=== PATIENT | male | born 1995 | race Caucasian/White ===

== ENCOUNTER 2021-09-18 00:50 | Inpatient (IN) | payer OTHER ==
[2021-09-18] MEDS ORDERED: CEFAZOLIN 1 GM VIAL ONE (00:53)
[2021-09-18] MEDS ORDERED: Boostrix 0.5 ML (Tdap) VIAL ONE (00:53)
[2021-09-18 01:13] LABS: #Basophils 0.1 thou/uL (0.0-0.2); #Eosinphils 0.2 thou/uL (0.0-0.7); #Lymphocytes 5.4 thou/uL (1.20-3.40); #Monocytes 0.8 thou/uL (0.11-0.59); #Neutrophils 12.6 thou/uL (1.40-6.50); %Basophils 0.4 % (0.0-1.0); %Eosinophils 1.2 % (0.0-10.0); %Monocytes 4.3 % (0.0-10.0); %Neutrophils 66.1 % (42.0-75.0); Mean Corpuscular Hemoglobin 31.3 pg (27.0-31.0); Mean Platelet Volume 8.9 fL (7.4-10.4); Platelet Count 290 thou/uL (130-400); RBC Distribution Width 12.1 % (11.5-14.5); Red Blood Cell (RBC) Count 4.48 mill/uL (4.70-6.10); White Blood Cell (WBC) Count 19.1 thou/uL (4.8-10.8)
[2021-09-18] MEDS ORDERED: Lidocaine 1% PF 5 ML VIAL ONE (01:23)
[2021-09-18 01:24] LABS: ALT (SGPT) 184 U/L (8-55); AST (SGOT) 290 U/L (5-34); Albumin 3.9 g/dL (3.5-5.0); Alkaline Phosphatase 68 U/L (40-110); Anion Gap 18 mmol/L (10-20); BUN (Urea Nitrogen) 23 mg/dL (8.9-20.6); Bilirubin, Total 0.9 mg/dL (0.2-1.2); Calc. Creatinine Clearance 0 mL/min (70-130); Calcium 9.2 mg/dL (7.8-10.44); Carbon Dioxide 19 mmol/L (22-29); Chloride 107 mmol/L (98-107); Globulin 2.5 g/dL (2.4-3.5); Glucose 197 mg/dL (70-105); Lipase 171 U/L (8-78); Potassium 3.5 mmol/L (3.5-5.1); Protein, Total 6.4 g/dL (6.0-8.3); Sodium 140 mmol/L (136-145)
[2021-09-18 01:27] LABS: INR-International Normal Ratio 1.2; PTT 34.9 sec (22.9-36.1); Prothrombin Time 15.2 sec (12.0-14.7)
[2021-09-18 01:28] LABS: Acetaminophen Less than 6.0 mcg/mL (10.0-30.0); Alcohol Less than 10 mg/dL (Less than 10); Salicylate Less than 8.0 mg/dL (15.0-30.0)
[2021-09-18] MEDS ORDERED: Morphine 4 MG/ML VIAL SLOW IVP PRN ×2 (01:38)
[2021-09-18] MEDS ORDERED: Dextrose 50% Abboject 50 ML SYRINGE SLOW IVP PRN (01:38)
[2021-09-18] MEDS ORDERED: Dextrose 5% in Water 1,000 ML IV PRN (01:38)
[2021-09-18] MEDS ORDERED: Ondansetron PF 4 MG/2 ML Vial IVP PRN (01:38)
[2021-09-18] MEDS ORDERED: Bacitracin 1 PK ONE (01:42)
[2021-09-18] MEDS ORDERED: Sodium Chloride 0.9% 1,000 ML IV SCH ×2 (01:45→07:30)
[2021-09-18 02:01] LABS: Bacteria/HPF None Seen HPF (None Seen); Bilirubin Negative (Negative); Blood, Urine 3+ (Negative); Clarity Clear (Clear); Glucose, Urine (Dipstick) Normal (Negative); Ketone, Urine Negative (Negative); Leukocyte Negative Leu/uL (Negative); Nitrite Negative (Negative); Protein, Urine (Dipstick) 30 mg/dL (Neg-Trace); RBC/HPF Greater than 50 HPF (0-3); Specific Gravity, Urine 1.022 (1.002-1.036); Squamous Epithelial 0-3 HPF (0-3); Urobilinogen Normal mg/dL (Less than 2); WBC/HPF 0-3 HPF (0-3)
[2021-09-18 02:02] LABS: Amphetamine Not Detected (NotDetected); Barbiturates Screen Not Detected (NotDetected); Benzodiazepine Screen Not Detected (NotDetected); Cocaine Metabolite Screen Not Detected (NotDetected); Methadone Not Detected (NotDetected); Methamphetamine Not Detected (NotDetected); Opiate Screen Not Detected (NotDetected); Oxycodone Screen Not Detected (NotDetected); Phencyclidine (PCP) Not Detected (NotDetected); THC/Cannabinoid Screen Not Detected (NotDetected); Tricyclic Screen Not Detected (NotDetected)
[2021-09-18] MEDS ORDERED: Lorazepam 2 MG/ML VIAL ONE (02:06)
[2021-09-18 04:06] LABS: Hemoglobin 14.2 g/dL (14.0-18.0)
[2021-09-18 04:08] LABS: Phosphorus 4.8 mg/dL (2.3-4.7)
[2021-09-18 04:09] LABS: Anion Gap 17 mmol/L (10-20); BUN (Urea Nitrogen) 28 mg/dL (8.9-20.6); Calc. Creatinine Clearance 0 mL/min (70-130); Calcium 9.5 mg/dL (7.8-10.44); Carbon Dioxide 23 mmol/L (22-29); Chloride 105 mmol/L (98-107); Glucose 149 mg/dL (70-105); Magnesium 2.1 mg/dL (1.6-2.6); Potassium 3.6 mmol/L (3.5-5.1); Sodium 141 mmol/L (136-145)
[2021-09-18 04:10] LABS: Lactic Acid 3.9 mmol/L (0.5-2.2)
[2021-09-18 04:47] VITALS: BMI 31.4
[2021-09-18 05:40] LABS: SARS-CoV-2 NAA Rapid Test Not Detected (NotDetected)
[2021-09-18] MEDS ORDERED: Potassium Chloride 20 MEQ in Premix Bag 1 BAG IVPB SCH (07:30)
[2021-09-18] MEDS ORDERED: FLU VACC QS2021-22(6MOS UP)/PF 60 MCG/0.5 ML SYRINGE IM ONE (09:00)
[2021-09-18] MEDS: Famotidine/PF 20 mg/2ml Vial SLOW IVP SCH ×2 (09:41→20:32)
[2021-09-18] MEDS ORDERED: Cyclobenzaprine 10 MG TAB PO PRN (10:14)
[2021-09-18] MEDS ORDERED: traMADol HCl 50 MG TAB PO PRN ×2 (10:14)
[2021-09-18] MEDS ORDERED: Iopamidol-370 76% 500 ML 1 ML ONE (11:00)
[2021-09-18] MEDS: Acetaminophen 500 MG TAB PO SCH ×3 (11:24→23:21)
[2021-09-18] MEDS: Sodium Chloride 0.9% 1,000 ML IV SCH ×3 (12:03→20:30)
[2021-09-18] MEDS: Gabapentin 300 MG CAP PO SCH ×2 (16:00→20:32)
[2021-09-18] MEDS ORDERED: Scopolamine 1.5 mg/72 hour Patch TD PRN (18:19)
[2021-09-19] MEDS: Sodium Chloride 0.9% 1,000 ML IV SCH (04:02)
[2021-09-19 05:14] LABS: Lactic Acid 1.9 mmol/L (0.5-2.2)
[2021-09-19 05:23] LABS: #Basophils 0.1 thou/uL (0.0-0.2); #Eosinphils 0.1 thou/uL (0.0-0.7); #Lymphocytes 2.5 thou/uL (1.20-3.40); #Neutrophils 8.9 thou/uL (1.40-6.50); %Basophils 0.5 % (0.0-1.0); %Eosinophils 1.2 % (0.0-10.0); %Lymphocytes 19.8 % (21.0-51.0); %Neutrophils 70.6 % (42.0-75.0); Hemoglobin 9.3 g/dL (14.0-18.0); Mean Corpuscular HGB CONC 36.2 g/dL (32.0-36.0); Mean Corpuscular Hemoglobin 31.7 pg (27.0-31.0); Mean Corpuscular Volume 87.6 fL (78.0-98.0); Mean Platelet Volume 8.8 fL (7.4-10.4); Platelet Count 176 thou/uL (130-400); RBC Distribution Width 12.4 % (11.5-14.5); Red Blood Cell (RBC) Count 2.94 mill/uL (4.70-6.10); White Blood Cell (WBC) Count 12.6 thou/uL (4.8-10.8)
[2021-09-19 05:31] LABS: Anion Gap 11 mmol/L (10-20); BUN (Urea Nitrogen) 20 mg/dL (8.9-20.6); CK (CPK) 3390 U/L (30-200); Calc. Creatinine Clearance 199 mL/min (70-130); Carbon Dioxide 21 mmol/L (22-29); Chloride 108 mmol/L (98-107); Glucose 98 mg/dL (70-105); Magnesium 1.9 mg/dL (1.6-2.6); Phosphorus 2.5 mg/dL (2.3-4.7); Potassium 3.7 mmol/L (3.5-5.1); Sodium 136 mmol/L (136-145)
[2021-09-19] MEDS: Acetaminophen 500 MG TAB PO SCH ×3 (06:48→17:28)
[2021-09-19] MEDS: Famotidine/PF 20 mg/2ml Vial SLOW IVP SCH ×2 (09:25→20:24)
[2021-09-19] MEDS: Gabapentin 300 MG CAP PO SCH ×3 (09:25→20:24)
[2021-09-19] MEDS ORDERED: Potassium Phosphate 30 MMOL in Sodium Chloride 0.9% 250 ML 250 ML IVPB SCH (09:30)
[2021-09-19] MEDS ORDERED: Magnesium 2 GM/50 ML 2 GM in Premix Bag 1 BAG IVPB SCH (09:30)
[2021-09-20] MEDS: Acetaminophen 500 MG TAB PO SCH ×4 (00:11→18:11)
[2021-09-20 05:09] LABS: Anion Gap 10 mmol/L (10-20); BUN (Urea Nitrogen) 11 mg/dL (8.9-20.6); CK (CPK) 2945 U/L (30-200); Calc. Creatinine Clearance 262 mL/min (70-130); Calcium 8.3 mg/dL (7.8-10.44); Carbon Dioxide 23 mmol/L (22-29); Chloride 109 mmol/L (98-107); Glucose 86 mg/dL (70-105); Phosphorus 2.2 mg/dL (2.3-4.7); Potassium 3.7 mmol/L (3.5-5.1); Sodium 138 mmol/L (136-145)
[2021-09-20 05:53] LABS: #Basophils 0.1 thou/uL (0.0-0.2); #Eosinphils 0.1 thou/uL (0.0-0.7); #Lymphocytes 1.9 thou/uL (1.20-3.40); #Monocytes 0.8 thou/uL (0.11-0.59); #Neutrophils 6.4 thou/uL (1.40-6.50); %Basophils 0.7 % (0.0-1.0); %Eosinophils 1.2 % (0.0-10.0); %Lymphocytes 20.8 % (21.0-51.0); %Monocytes 8.2 % (0.0-10.0); Hemoglobin 7.2 g/dL (14.0-18.0); Mean Corpuscular HGB CONC 35.9 g/dL (32.0-36.0); Mean Corpuscular Hemoglobin 31.5 pg (27.0-31.0); Mean Corpuscular Volume 87.6 fL (78.0-98.0); Mean Platelet Volume 8.5 fL (7.4-10.4); Platelet Count 116 thou/uL (130-400); Platelet Morphology Comment Appears Decreased; RBC Distribution Width 12.3 % (11.5-14.5); Red Blood Cell (RBC) Count 2.29 mill/uL (4.70-6.10); White Blood Cell (WBC) Count 9.2 thou/uL (4.8-10.8)
[2021-09-20] MEDS ORDERED: Potassium Phosphate 30 MMOL in Sodium Chloride 0.9% 250 ML 250 ML IVPB SCH (08:45)
[2021-09-20] MEDS: Gabapentin 300 MG CAP PO SCH ×3 (09:19→21:23)
[2021-09-20] MEDS: Famotidine 20 MG TAB PO SCH ×2 (09:19→21:23)
[2021-09-20 17:18] LABS: Hemoglobin 7.4 g/dL (14.0-18.0); Mean Corpuscular HGB CONC 36.1 g/dL (32.0-36.0); Mean Corpuscular Hemoglobin 31.5 pg (27.0-31.0); Mean Corpuscular Volume 87.4 fL (78.0-98.0); Mean Platelet Volume 8.7 fL (7.4-10.4); Platelet Count 140 thou/uL (130-400); RBC Distribution Width 12.2 % (11.5-14.5); Red Blood Cell (RBC) Count 2.35 mill/uL (4.70-6.10); White Blood Cell (WBC) Count 10.1 thou/uL (4.8-10.8)
[2021-09-21] MEDS: Acetaminophen 500 MG TAB PO SCH ×5 (00:10→23:46)
[2021-09-21 04:45] LABS: #Basophils 0.1 thou/uL (0.0-0.2); #Eosinphils 0.1 thou/uL (0.0-0.7); #Lymphocytes 1.7 thou/uL (1.20-3.40); #Monocytes 0.6 thou/uL (0.11-0.59); #Neutrophils 5.2 thou/uL (1.40-6.50); %Eosinophils 1.9 % (0.0-10.0); %Monocytes 7.8 % (0.0-10.0); %Neutrophils 67.3 % (42.0-75.0); Hemoglobin 7.6 g/dL (14.0-18.0); Mean Corpuscular HGB CONC 35.4 g/dL (32.0-36.0); Mean Corpuscular Hemoglobin 31.1 pg (27.0-31.0); Mean Corpuscular Volume 87.9 fL (78.0-98.0); Mean Platelet Volume 8.8 fL (7.4-10.4); Platelet Count 163 thou/uL (130-400); RBC Distribution Width 12.6 % (11.5-14.5); Red Blood Cell (RBC) Count 2.43 mill/uL (4.70-6.10); White Blood Cell (WBC) Count 7.7 thou/uL (4.8-10.8)
[2021-09-21 05:05] LABS: Anion Gap 10 mmol/L (10-20); BUN (Urea Nitrogen) 11 mg/dL (8.9-20.6); Calc. Creatinine Clearance 262 mL/min (70-130); Calcium 8.5 mg/dL (7.8-10.44); Carbon Dioxide 25 mmol/L (22-29); Chloride 108 mmol/L (98-107); Glucose 83 mg/dL (70-105); Phosphorus 2.8 mg/dL (2.3-4.7); Potassium 4.1 mmol/L (3.5-5.1); Sodium 139 mmol/L (136-145)
[2021-09-21] MEDS: Gabapentin 300 MG CAP PO SCH ×3 (08:50→20:38)
[2021-09-21] MEDS: Famotidine 20 MG TAB PO SCH ×2 (08:50→20:38)
[2021-09-21] MEDS: Ferrous Sulfate 325 MG TAB PO SCH (17:33)
[2021-09-21] MEDS: Ascorbic Acid 500 mg Chewable Tablet PO SCH (20:38)
[2021-09-22 05:21] LABS: #Basophils 0.1 thou/uL (0.0-0.2); #Eosinphils 0.2 thou/uL (0.0-0.7); #Lymphocytes 1.6 thou/uL (1.20-3.40); #Monocytes 0.7 thou/uL (0.11-0.59); #Neutrophils 6.2 thou/uL (1.40-6.50); %Basophils 0.8 % (0.0-1.0); %Eosinophils 1.9 % (0.0-10.0); %Lymphocytes 18.1 % (21.0-51.0); %Monocytes 8.4 % (0.0-10.0); %Neutrophils 70.8 % (42.0-75.0); Hemoglobin 7.8 g/dL (14.0-18.0); Mean Corpuscular HGB CONC 34.6 g/dL (32.0-36.0); Mean Corpuscular Hemoglobin 30.3 pg (27.0-31.0); Mean Corpuscular Volume 87.4 fL (78.0-98.0); Platelet Count 196 thou/uL (130-400); RBC Distribution Width 12.6 % (11.5-14.5); Red Blood Cell (RBC) Count 2.58 mill/uL (4.70-6.10); White Blood Cell (WBC) Count 8.7 thou/uL (4.8-10.8)
[2021-09-22] MEDS: Acetaminophen 500 MG TAB PO SCH ×2 (06:16→12:26)
[2021-09-22] MEDS ORDERED: diphenhydrAMINE 25 MG CAP PO PRN (06:55)
[2021-09-22] MEDS: Gabapentin 300 MG CAP PO SCH ×2 (09:24→15:12)
[2021-09-22] MEDS: Ascorbic Acid 500 mg Chewable Tablet PO SCH (09:24)
[2021-09-22] MEDS: Ferrous Sulfate 325 MG TAB PO SCH (09:24)
[2021-09-22 11:39] VITALS: TEMP 98.2
[2021-09-22 12:35] VITALS: BP 168/95
== END 2021-09-22 15:22 | disposition home or self-care (01) | DRG 964 ==
LOC: ERS 00:50 → CCU 01:45 → SURG B 12:41
PROVIDERS: ADMIT Surgery; ATTEND Surgery
DX: S32.592A Other specified fracture of left pubis, initial encounter for closed fracture (principal); S36.032A Major laceration of spleen, initial encounter; S32.048A Other fracture of fourth lumbar vertebra, initial encounter for closed fracture; S22.32XA Fracture of one rib, left side, initial encounter for closed fracture; N17.9 Acute kidney failure, unspecified; E87.2 Acidosis; M25.461 Effusion, right knee; Z20.822 Contact with and (suspected) exposure to COVID-19; S06.0X0A Concussion without loss of consciousness, initial encounter; S01.01XA Laceration without foreign body of scalp, initial encounter; S83.411A Sprain of medial collateral ligament of right knee, initial encounter; S83.511A Sprain of anterior cruciate ligament of right knee, initial encounter; D50.0 Iron deficiency anemia secondary to blood loss (chronic); V39.49XA Driver of three-wheeled motor vehicle injured in collision with other motor vehicles in traffic accident, initial encounter
CPT/HCPCS: 36415; 51702; 70450; 71045; 71260; 72125; 74177; 80048; 80053; 80306; 80307; 81003; 81015; 82550; 83605; 83690; 83735; 84100; 85025; 85610; 85730; 86850; 86900; 86901; 90471; 90686; 90715; 96374; 96375; G0008; G0390; J0690; J2060; J2270; J2405; J3475; J3480; J7050; Q9967; S0028; U0002

== ENCOUNTER 2022-01-03 12:39 | Outpatient (CLI) | payer OTHER ==
[2022-01-03 14:01] LABS: #Basophils 0.1 10x3/uL (0.0-0.2); #Eosinphils 0.2 10x3/uL (0.0-0.5); #Monocytes 0.5 10x3/uL (0.0-1.1); #Neutrophils 3.2 10x3/uL (1.5-8.4); %Basophils 1.9 % (0.0-2.0); %Eosinophils 3.8 % (0.0-6.0); %Lymphocytes 30.2 % (18.0-47.0); %Monocytes 8.1 % (0.0-10.0); %Neutrophils 55.5 % (40.0-75.0); Hemoglobin 14.9 g/dL (13.5-17.5); Mean Corpuscular HGB CONC 32.5 g/dL (32.0-36.0); Mean Corpuscular Hemoglobin 27.6 pg (27.0-33.0); Mean Corpuscular Volume 84.8 fl (81.2-95.1); Platelet Count 264 10x3/uL (150-450); RBC Distribution Width 13.7 % (11.5-14.5); White Blood Cell (WBC) Count 5.8 10x3/uL (3.5-10.5)
[2022-01-04 00:41] LABS: SARS-CoV-2 PCR by NAA Not Detected (NotDetected)
== END 2022-01-03 12:40 | disposition home or self-care (01) ==
LOC: LABBT 12:39
PROVIDERS: ATTEND Orthopaedic Surgery
DX: Z01.812 Encounter for preprocedural laboratory examination (principal); S83.511A Sprain of anterior cruciate ligament of right knee, initial encounter; S83.411A Sprain of medial collateral ligament of right knee, initial encounter; Z20.822 Contact with and (suspected) exposure to COVID-19
CPT/HCPCS: 85025; U0003; U0005

== ENCOUNTER 2022-01-06 07:47 | Day surgery (SDC) | payer OTHER ==
[2021-12-29 13:11] VITALS: BMI 32.6
[2022-01-06] MEDS ORDERED: Midazolam HCl 2 mg/2 ml Vial ONE (09:12)
[2022-01-06] MEDS ORDERED: Fentanyl 100 MCG/2 ML VIAL ONE ×3 (09:12→12:10)
[2022-01-06] MEDS ORDERED: Dexmedetomidine 200 MCG/2 ML VIAL ONE (09:38)
[2022-01-06] MEDS ORDERED: ceFAZolin 2 GM/Dextrose 50 ML IVPB ONE (09:44)
[2022-01-06] MEDS ORDERED: Fentanyl 100 MCG/2 ML VIAL SLOW IVP PRN (09:56)
[2022-01-06] MEDS ORDERED: traMADol HCl 50 MG TAB PO PRN ×2 (10:00)
[2022-01-06] MEDS ORDERED: Ondansetron PF 4 MG/2 ML Vial IVP PRN (10:00)
[2022-01-06] MEDS ORDERED: HYDROcodone/Acetaminophen 10/325 mg Tablet PO PRN ×2 (10:00)
[2022-01-06] MEDS ORDERED: Promethazine HCl 25 MG/ML VIAL IM PRN (10:00)
[2022-01-06] MEDS ORDERED: Zolpidem Tartrate 5 MG TAB PO PRN (10:00)
[2022-01-06] MEDS ORDERED: Ropivacaine 0.2% 550 ML 550 ML NERVE BLCK SCH (10:00)
[2022-01-06] MEDS ORDERED: Ondansetron PF 4 MG/2 ML Vial ONE (10:06)
[2022-01-06] MEDS ORDERED: PROPOFOL 200 MG/20 ML VIAL ONE (10:06)
[2022-01-06] MEDS ORDERED: Ropivacaine 0.5% HCl/PF (150 MG/30 ML VIAL) ONE (10:06)
[2022-01-06] MEDS ORDERED: Dexamethasone 20 MG/5 ML VIAL ONE (10:06)
[2022-01-06] MEDS ORDERED: Lidocaine 1% PF 5 ML VIAL ONE (10:06)
[2022-01-06] MEDS ORDERED: Ketorolac Tromethamine 30 MG/ML VIAL IVP SCH (12:00)
[2022-01-06] MEDS ORDERED: Promethazine HCl 25 MG/ML VIAL ONE (12:17)
== END 2022-01-06 14:55 | disposition home or self-care (01) ==
LOC: SDC 07:47
PROVIDERS: ATTEND Orthopaedic Surgery
PROC: 0MRN47Z Replacement of Right Knee Bursa and Ligament with Autologous Tissue Substitute, Percutaneous Endoscopic Approach (ICD-10-PCS; principal; 2022-01-06)
PROC: 3E0T3BZ Introduction of Anesthetic Agent into Peripheral Nerves and Plexi, Percutaneous Approach (ICD-10-PCS; principal; 2022-01-06)
DX: S83.511A Sprain of anterior cruciate ligament of right knee, initial encounter (principal); S83.411A Sprain of medial collateral ligament of right knee, initial encounter; Z79.899 Other long term (current) drug therapy; Z88.8 Allergy status to other drugs, medicaments and biological substances; V89.2XXA Person injured in unspecified motor-vehicle accident, traffic, initial encounter
CPT/HCPCS: A4306; C1713; J0690; J1100; J2250; J2405; J2550; J2704; J2795; J3010